=== PATIENT | female | born 1970 | race African-American/Black ===

== ENCOUNTER 2016-12-12 20:32 | Emergency (ER) | payer BC, OTHER ==
[2016-12-12 20:46] VITALS: BP 115/74; PULSE 85; TEMP 98.5; BMI 37.3
[2016-12-12] MEDS ORDERED: ALBUTEROL SO4 2.5/IPRATROPIUM 0.5 INH SOL 3 ML VIAL.NEB. NEB ONE ×2 (20:46→23:58)
--- NOTE | 2016-12-13 01:14 | PDOC ---
History of Present Illness - General History Source: Patient Exam Limitations: No Limitations - History of Present Illness Initial Comments: 12/13/16 01:30 Patient is a 46 year old female with a significant past medical history of asthma and hypertension who presents to the ED s/p asthma attack. Patient states that her chest feels tight and she has difficulty breathing. She notes that she has been using her rescue inhaler for several weeks. She reports 3 weeks of persistent cough. PSH - partial hysterectomy, meniscus repair. <Lillian Hale - Last Filed: 12/13/16 01:38> <Karma Dos Santos - Last Filed: 12/13/16 02:32> - General Chief Complaint: Asthma Stated Complaint: ASTHMA ATTACK Time Seen by Provider: 12/12/16 21:46 Past History <Lillian Hale - Last Filed: 12/13/16 01:38> - Past Medical History Asthma: Yes HTN: Yes - Surgical History Orthopedic Surgery: Yes (r knee arthroscopt 2011) - Immunization History Immunization Up to Date: No - Psycho/Social/Smoking Cessation Hx Anxiety: No Suicidal Ideation: No Smoking History: Never smoked Have you smoked in the past 12 months: No Hx Alcohol Use: Yes (occassional) Drug/Substance Use Hx: No Substance Use Type: None Hx Substance Use Treatment: No <Karma Dos Santos - Last Filed: 12/13/16 02:32> - Past Medical History Allergies/Adverse Reactions: Allergies Allergy/AdvReac Type Severity Reaction Status Date / Time No Known Drug Allergies Allergy Verified 12/12/16 20:40 shellfish derived Allergy Verified 12/12/16 20:40 Home Medications: Ambulatory Orders Budesonide/Formeterol Fumarate [SYMBICORT 160/4.5mcg -] 1 inh IH PRN PRN Lisinopril/Hydrochlorothiazide [Lisinopril-Hctz 10-12.5 mg Tab] 1 each PO DAILY 12/12/16 Review of Systems - Review of Systems Able to Perform ROS?: Yes Comments:: 12/13/16 01:30 CONSTITUTIONAL: Absent: fever, chills, diaphoresis, generalized weakness, malaise, loss of appetite HEENT: Absent: rhinorrhea, nasal congestion, throat pain, throat swelling, difficulty swallowing, mouth swelling, ear pain, eye pain, visual Changes CARDIOVASCULAR: Absent: chest pain, syncope, palpitations, irregular heart rate, lightheadedness , peripheral edema RESPIRATORY: Present: SOB, chest tightness, cough Absent: dyspnea with exertion, orthopnea, wheezing, stridor, hemoptysis GASTROINTESTINAL: Absent: abdominal pain, abdominal distension, nausea, vomiting, diarrhea, constipation, melena, hematochezia GENITOURINARY: Absent: dysuria, frequency, urgency, hesitancy, hematuria, flank pain, genital pain MUSCULOSKELETAL: Absent: myalgia, arthralgia, joint swelling SKIN: Absent: rash, itching, pallor HEMATOLOGIC/IMMUNOLOGIC: Absent: easy bleeding, easy bruising, lymphadenopathy, frequent infections ENDOCRINE: Absent: unexplained weight gain, unexplained weight loss, heat intolerance, cold intolerance NEUROLOGIC: Absent: headache, focal weakness or paresthesias, dizziness, unsteady gait, seizure, mental status changes, bladder or bowel incontinence PSYCHIATRIC: Absent: anxiety, depression, suicidal or homicidal ideation, hallucinations. <Lillian Hale - Last Filed: 12/13/16 01:38> *Physical Exam - Vital Signs Last Vital Signs Temp Pulse Resp BP Pulse Ox 98.5 F 85 22 115/74 97 12/12/16 20:45 12/12/16 20:45 12/12/16 20:45 12/12/16 20:45 12/13/16 00:03 - Physical Exam Comments: 12/13/16 01:32 GENERAL: Well developed, well nourished. Awake and alert. No acute distress. HEENT: Normocephalic, atraumatic. PERRLA, EOMI. No conjunctival pallor. Sclera are non- icteric. Moist mucous membranes. Oropharynx is clear. NECK: Supple. Full ROM. No JVD. Carotid pulses 2+ and symmetric, without bruits. No thyromegaly. No lymphadenopathy. CARDIOVASCULAR: Regular rate and rhythm. No murmurs, rubs, or gallops. Distal pulses are 2+ and symmetric. PULMONARY: No evidence of respiratory distress. Lungs clear to auscultation bilaterally. No wheezing, rales or rhonchi. ABDOMINAL: Soft. Non-tender. Non-distended. No rebound or guarding. No organomegaly. Normoactive bowel sounds. MUSCULOSKELETAL Normal range of motion at all joints. No bony deformities or tenderness. No CVA tenderness. EXTREMITIES: No cyanosis. No clubbing. No edema. No calf tenderness. SKIN: Warm and dry. Normal capillary refill. No rashes. No jaundice. NEUROLOGICAL: Alert, awake, appropriate. Cranial nerves 2-12 intact. No deficits to light touch and temperature in face, upper extremities and lower extremities. No motor deficits in the in face, upper extremities and lower extremities. Normoreflexic in the upper and lower extremities. Normal speech. PSYCHIATRIC: Cooperative. Good eye contact. Appropriate mood and affect. <Lillian Hale - Last Filed: 12/13/16 01:38> - Vital Signs Last Vital Signs Temp Pulse Resp BP Pulse Ox 98.5 F 85 22 115/74 97 12/12/16 20:45 12/12/16 20:45 12/12/16 20:45 12/12/16 20:45 12/13/16 00:03 <Karma Dos Santos - Last Filed: 12/13/16 02:32> ED Treatment Course - Medications Given in the ED: ED Medications Discontinued Medications Generic Name Dose Route Start Last Admin Trade Name Freq PRN Reason Stop Dose Admin Albuterol/Ipratropium 1 amp 12/12/16 20:46 12/12/16 20:47 Duoneb - NEB 12/12/16 20:47 2 amp NOW ONE Administration <Lillian Hale - Last Filed: 12/13/16 01:38> - Medications Given in the ED: ED Medications Discontinued Medications Generic Name Dose Route Start Last Admin Trade Name Freq PRN Reason Stop Dose Admin Albuterol/Ipratropium 1 amp 12/12/16 20:46 12/12/16 20:47 Duoneb - NEB 12/12/16 20:47 2 amp NOW ONE Administration <Karma Dos Santos - Last Filed: 12/13/16 02:32> *DC/Admit/Observation/Transfer - Attestations Scribe Attestion: 12/13/16 01:32 Documentation prepared by RICHELLE Hill, acting as medical assistant cardiology for Karma Dos Santos MD. <Lillian Hale - Last Filed: 12/13/16 01:38> <Karma Dos Santos - Last Filed: 12/13/16 02:32> Diagnosis at time of Disposition: Asthma attack - Discharge Dispostion Disposition: HOME Condition at time of disposition: Stable - Referrals Referrals: Eloisa Wu MD [Staff Physician] - - Patient Instructions Printed Discharge Instructions: DI for Asthma -- Adult Additional Instructions: please bulk picker your prescription at your pharmacy return to the emergency department for any worsening symptoms
[2016-12-13] MEDS ORDERED: predniSONE 20 MG TABLET (UD) PO ONE (01:38)
[2016-12-13] MEDS ORDERED: predniSONE 20 MG TABLET (UD) ONE (02:07)
--- NOTE | 2016-12-14 08:18 | EKG ---
Test Reason : Blood Pressure : / mmHG Vent. Rate : 058 BPM Atrial Rate : 058 BPM P-R Int : 210 ms QRS Dur : 088 ms QT Int : 416 ms P-R-T Axes : 047 041 014 degrees QTc Int : 408 ms SINUS BRADYCARDIA WITH 1ST DEGREE A-V BLOCK CANNOT RULE OUT ANTERIOR INFARCT , AGE UNDETERMINED ABNORMAL ECG NO PREVIOUS ECGS AVAILABLE Confirmed by ANJU YANCEY MD ([id number]) on 12/14/2016 8:18:21 AM Referred By: Confirmed By:ANJU YANCEY MD
== END 2016-12-13 03:27 | disposition home or self-care (01) ==
LOC: JER 20:32
PROC: 3E0F7GC Introduction of Other Therapeutic Substance into Respiratory Tract, Via Natural or Artificial Opening (ICD-10-PCS; principal; 2016-12-12)
DX: J45.901 Unspecified asthma with (acute) exacerbation (principal); I10 Essential (primary) hypertension
CPT/HCPCS: 71020-TC; 93005; 93010; 99282-25

== ENCOUNTER 2019-07-03 21:28 | Observation (INO) | payer OTHER ==
[2019-07-03] MEDS ORDERED: NITROGLYCERIN SUBLINGUAL 1/150 0.4 MG TAB SL ONE (22:25)
[2019-07-03] MEDS ORDERED: NITROGLYCERIN SUBLINGUAL 1/150 0.4 MG TAB ONE (22:49)
[2019-07-03 22:52] LABS: BASO % 1.1 % (0-2.0); HEMATOCRIT 33.5 % (32.4-45.2); HEMOGLOBIN 10.9 GM/dL (10.7-15.3); MCH 26.8 pg (25.7-33.7); MCHC 32.6 g/dl (32.0-36.0); MEAN CELL VOLUME 82.4 fl (80-96); MEAN PLT VOLUME 8.9 fl (7.5-11.1); MONO % 8.4 % (3.8-10.2); NEUT % 56.5 % (42.8-82.8); PLATELET COUNT 242 K/MM3 (134-434); RBC 4.07 M/mm3 (3.60-5.2); RDW 14.3 % (11.6-15.6); WHITE BLOOD COUNT 6.8 K/mm3 (4.0-10.0)
[2019-07-04 01:01] LABS: ALBUMIN 3.3 g/dl (3.4-5.0); ALK PHOS 60 U/L (45-117); ANION GAP 6 MMOL/L (8-16); BILIRUBIN,TOTAL 0.6 mg/dL (0.2-1); BLOOD UREA NITROGEN 10.9 mg/dL (7-18); CALCIUM 8.7 mg/dL (8.5-10.1); CHLORIDE 100 mmol/L (98-107); CO2 30 mmol/L (21-32); CREATININE 0.8 mg/dL (0.55-1.3); GLUCOSE,RANDOM 90 mg/dL (74-106); POTASSIUM 3.9 mmol/L (3.5-5.1); SGOT/AST 23 U/L (15-37); SGPT/ALT 22 U/L (13-61); SODIUM 136 mmol/L (136-145); TOT PROT 6.5 g/dl (6.4-8.2)
[2019-07-04] MEDS ORDERED: ENOXAPARIN NA (PORCINE) 100 MG/1 ML DISP.SYRIN SQ ONE ×2 (01:09→01:40)
[2019-07-04] MEDS ORDERED: SODIUM CHLORIDE 1,000 ML IV STA (01:13)
[2019-07-04] MEDS ORDERED: NITROGLYCERIN 2% OINTMENT - 1GM PACKET TD ONE ×3 (01:14→01:45)
--- NOTE | 2019-07-04 01:15 | PDOC ---
Documentation entered by Livia Gaona SCRIBE, acting as scribe for Marcio Guerrero MD. Marcio Guerrero MD: This documentation has been prepared by the [employer] Sammi, SCRIBE, under my direction and personally reviewed by me in its entirety. I confirm that the documentation accurately reflects all work, treatment, procedures, and medical decision making performed by me. History of Present Illness - General Chief Complaint: Chest Pain Stated Complaint: CHEST PAIN Time Seen by Provider: 07/03/19 22:13 - History of Present Illness Initial Comments: 07/03/19 22:32 The patient is a 49 year old female with a PMH of HTN and asthma who presents with about 45 min of constant, pleuritic chest pain with radiation to the back, pressure like in character with an occasional sharp feeling, 7/10, slightly alleviated with sitting opposed to lying down, with associated left lower extremity pain. Denies cough, fever or chills. She notes similar episode about 2 months ago which was not as severe and did not last as long. The patient has taken 162mg of aspirin prior to arrival to ED with no relief. Of note, the patient received an abdominal CT today for recent abdominal symptoms. PCP: Kirk Allergies: shellfish Social history: denies smoking or alcohol use. Surgical history: hysterectomy Family history: mom-CHF Past History - Past Medical History Allergies/Adverse Reactions: Allergies Allergy/AdvReac Type Severity Reaction Status Date / Time No Known Drug Allergies Allergy Verified 12/12/16 20:40 shellfish derived Allergy Verified 12/12/16 20:40 Home Medications: Ambulatory Orders Budesonide/Formeterol Fumarate [SYMBICORT 160/4.5mcg -] 1 inh IH PRN PRN Lisinopril/Hydrochlorothiazide [Lisinopril-Hctz 10-12.5 mg Tab] 1 each PO DAILY 12/12/16 Albuterol Sulfate Inhaler - [Ventolin Hfa Inhaler -] 1 - 2 inh PO Q4H PRN #1 inhaler 12/13/16 Prednisone [Deltasone] 40 mg PO DAILY #8 tablet 12/13/16 Asthma: Yes COPD: No HTN: Yes - Surgical History GI Surgery: Yes (Gastric sleeve) Orthopedic Surgery: Yes (r knee arthroscopt 2011) - Immunization History Immunization Up to Date: No - Psycho Social/Smoking Cessation Hx Smoking History: Never smoked Have you smoked in the past 12 months: No Hx Alcohol Use: No Drug/Substance Use Hx: No Substance Use Type: None Hx Substance Use Treatment: No Review of Systems - Review of Systems Comments:: 07/03/19 22:37 CONSTITUTIONAL: No fever, no chills, no fatigue EYES: No visual changes ENT: No ear pain, no sore throat CARDIOVASCULAR: +chest pain. no palpitations RESPIRATORY: No cough, no SOB GI: No abdominal pain, no nausea, no vomiting, no constipation, no diarrhea GENITOURINARY: No dysuria, no frequency, no hematuria MUSKULOSKELETAL: +LLE pain SKIN: No rash NEURO: No headache *Physical Exam - Vital Signs Last Vital Signs Temp Pulse Resp BP Pulse Ox 98.1 F 78 20 121/78 100 07/03/19 21:45 07/03/19 21:45 07/03/19 21:45 07/03/19 21:45 07/03/19 21:45 - Physical Exam Comments: 07/03/19 22:52 CONSTITUTIONAL: Well-appearing; well-nourished; in no apparent distress NECK: Supple; non-tender; no cervical lymphadenopathy CARD: Normal S1, S2; no murmurs, rubs, or gallops CHEST: +Reproducible right sternal tenderness to palpation RESP: Normal chest excursion with respiration; breath sounds clear and equal bilaterally; no wheezes, rhonchi, or rales ABD: Soft, non-distended; non-tender; no palpable organomegaly, no palpable hernias EXT: Normal ROM in all four extremities; non-tender to palpation; distal pulses intact SKIN: Warm, dry, no rash NEURO: No focal neurological deficiencies. Heart Score/ECG Review - ECG Impressions Comment:: 07/03/19 22:31 normal sinus rhythm normal ECG ED Treatment Course - LABORATORY CBC & Chemistry Diagram: 07/03/19 22:43 07/04/19 00:00 - ADDITIONAL ORDERS Additional order review: Laboratory Results 07/04/19 07/03/19 07/03/19 00:00 22:43 22:43 D-Dimer 758 H Sodium 136 Cancelled Potassium 3.9 Cancelled Chloride 100 Cancelled Carbon Dioxide 30 Cancelled Anion Gap 6 L Cancelled BUN 10.9 Cancelled Creatinine 0.8 Cancelled Est GFR (CKD-EPI)AfAm 100.33 Cancelled Est GFR (CKD-EPI)NonAf 86.57 Cancelled Random Glucose 90 Cancelled Calcium 8.7 Cancelled Total Bilirubin 0.6 Cancelled AST 23 Cancelled ALT 22 Cancelled Alkaline Phosphatase 60 Cancelled Creatine Kinase 239 H Troponin I < 0.02 Total Protein 6.5 Cancelled Albumin 3.3 L Cancelled 07/03/19 22:43 D-Dimer Sodium Potassium Chloride Carbon Dioxide Anion Gap BUN Creatinine Est GFR (CKD-EPI)AfAm Est GFR (CKD-EPI)NonAf Random Glucose Calcium Total Bilirubin AST ALT Alkaline Phosphatase Creatine Kinase Cancelled Troponin I Cancelled Total Protein Albumin 07/03/19 22:43 RBC 4.07 MCV 82.4 MCHC 32.6 RDW 14.3 MPV 8.9 Neutrophils % 56.5 Lymphocytes % 33.0 Monocytes % 8.4 Eosinophils % 1.0 Basophils % 1.1 - RADIOLOGY Radiology Studies Ordered: Category Date Time Status CHEST PA & LAT [RAD] Stat Radiology 07/03/19 22:25 Taken - Medications Given in the ED: ED Medications Discontinued Medications Generic Name Dose Route Start Last Admin Trade Name Freq PRN Reason Stop Dose Admin Nitroglycerin 0.4 mg 07/03/19 22:25 07/03/19 22:54 Nitrostat - SL 07/03/19 22:26 0.4 mg ONCE ONE Administration Medical Decision Making - Medical Decision Making 07/04/19 01:14 Patient is a 49-year-old female with history of asthma and hypertension who presents with pleuritic right-sided chest pain radiating to the back. EKG shows no evidence of acute ischemia or acute dysrhythmia. First set of cardiac enzymes within normal limits. Patient's heart score is noted to be 3. D-dimer is elevated. However, I am unable to obtain a CTA of chest at this time given the patient received IV contrast earlier in the day. Will administer subcu Lovenox at 1 mg/kg. Will admit to telemetry. Will hydrate. Will obtain CTA in 24 hours. Discharge - Discharge Information Problems reviewed: Yes Clinical Impression/Diagnosis: Chest pain Qualifiers: Chest pain type: unspecified Qualified Code(s): R07.9 - Chest pain, unspecified Condition: Fair - Admission Yes - Follow up/Referral Referrals: Eloisa Wu MD [Primary Care Provider] - - Patient Discharge Instructions - Post Discharge Activity
[2019-07-04 04:36] VITALS: BMI 41.1
[2019-07-04] MEDS ORDERED: LISINOPRIL 10 MG TABLET (FP) PO SCH (10:00)
[2019-07-04] MEDS ORDERED: HYDROCHLOROTHIAZIDE 12.5 MG CAPSULE (FP) PO SCH (10:00)
--- NOTE | 2019-07-04 10:00 | CON.CARD ---
Consult Consult Specialty:: Cardiology Referred by:: Eloisa Wu Reason for Consultation:: Pleuritic chest pain - History of Present Illness Chief Complaint: Pleurisy since resolved History of Present Illness: The patient is a 49 year old female with a PMH of HTN and asthma who presented with about 45 min of constant, pleuritic chest pain with radiation to the back, pressure like in character with an occasional sharp feeling, without associated symptoms of dyspnea, near or true syncope, palpitations, orthopnea, PND or LE edema. Chest pain has since resolved and LLE discomfort improved, denies prolonged immobility or family/personal h/o thrombophilia, received Lovenox and SL NTG in ED. PCP: Dima Allergies: shellfish Social history: denies smoking or alcohol use. Surgical history: hysterectomy Family history: mom-CHF - History Source History Provided By: Patient Limitations to Obtaining History: No Limitations - Past Medical History ...LMP: 06/20/16 ...: No - Past Surgical History Past Surgical History: Yes: None - Alcohol/Substance Use Hx Alcohol Use: No History of Substance Use: reports: None - Smoking History Smoking history: Never smoked Have you smoked in the past 12 months: No Home Medications - Allergies Allergies/Adverse Reactions: Allergies Allergy/AdvReac Type Severity Reaction Status Date / Time No Known Drug Allergies Allergy Verified 12/12/16 20:40 shellfish derived Allergy Verified 12/12/16 20:40 - Home Medications Home Medications: Ambulatory Orders Budesonide/Formeterol Fumarate [SYMBICORT 160/4.5mcg -] 1 inh IH PRN PRN Lisinopril/Hydrochlorothiazide [Lisinopril-Hctz 10-12.5 mg Tab] 1 each PO DAILY 12/12/16 Albuterol Sulfate Inhaler - [Ventolin Hfa Inhaler -] 1 - 2 inh PO Q4H PRN #1 inhaler 12/13/16 Review of Systems - Review of Systems Cardiovascular: reports: Chest Pain Vital Signs: Vital Signs Temperature 98.5 F 07/04/19 04:22 Pulse Rate 65 07/04/19 04:22 Respiratory Rate 18 07/04/19 04:22 Blood Pressure 110/61 07/04/19 04:22 O2 Sat by Pulse Oximetry (%) 98 07/04/19 04:22 Constitutional: Yes: No Distress, Calm Neck: Yes: Supple Respiratory: Yes: Regular, CTA Bilaterally Gastrointestinal: Yes: Normal Bowel Sounds, Soft, Abdomen, Obese Cardiovascular: Yes: Regular Rate and Rhythm JVD: No Carotid Bruit: No Heart Sounds: Yes: S1, S2 Edema: No - Other Data Labs, Other Data: CBC, BMP 07/03/19 22:43 07/04/19 00:00 Troponin, BNP 07/03/19 07/04/19 22:43 00:00 Troponin I Cancelled < 0.02 Troponin, BNP 07/03/19 07/04/19 22:43 00:00 Troponin I Cancelled < 0.02 NSR @ [address]-T changes Ejection Fraction %: LVEF > or = 40 % Imaging - Results Chest X-ray: Report Reviewed (NAD) Problem List - Problems (1) Hypertension Code(s): I10 - ESSENTIAL (PRIMARY) HYPERTENSION Qualifiers: Hypertension type: essential hypertension Qualified Code(s): I10 - Essential (primary) hypertension (2) Asthma Code(s): J45.909 - UNSPECIFIED ASTHMA, UNCOMPLICATED Qualifiers: Asthma severity: moderate (3) Chest pain Code(s): R07.9 - CHEST PAIN, UNSPECIFIED Qualifiers: Chest pain type: pleurodynia Qualified Code(s): R07.81 - Pleurodynia Assessment/Plan 1. Pleuritic chest pain since resolved, possible atelectasis 2. Asthma 3. Hypertension P:1. Symptoms suggest low clinical suspicion of pulmonary embolism, elevated D- dimer is nonspecific for DVT/PE, defer chest CTA, ruling out IA 2. Analgesia as needed 3. Continue BD as needed, zesteretic 06/01.5 qd 4. D/c planning with f/u in office , thank you for consultative opportunity
--- NOTE | 2019-07-04 10:14 | PN ---
Progress Note, Physician Chief Complaint: Pt lying in bed,no complaints today NO sob,satuaration 99% no chest pain As per cardiology low probability for embolism fas per the symptoms and nonspecefic value of D dimer Rpt d dimer value is lower - Current Medication List Current Medications: Active Medications Hydrochlorothiazide (Hctz -) 12.5 mg PO DAILY HERMAN Lisinopril (Prinivil) 10 mg PO DAILY HERMAN - Objective Vital Signs: Vital Signs Temperature 98.5 F 07/04/19 04:22 Pulse Rate 65 07/04/19 04:22 Respiratory Rate 18 07/04/19 04:22 Blood Pressure 110/61 07/04/19 04:22 O2 Sat by Pulse Oximetry (%) 98 07/04/19 04:22 Constitutional: Yes: No Distress Eyes: Yes: Conjunctiva Clear HENT: Yes: Atraumatic, Normocephalic Neck: Yes: Supple, Trachea Midline Cardiovascular: Yes: Regular Rate and Rhythm Respiratory: Yes: Regular, CTA Bilaterally Gastrointestinal: Yes: Normal Bowel Sounds, Soft Musculoskeletal: Yes: WNL Extremities: Yes: WNL Edema: No Peripheral Pulses WNL: Yes Neurological: Yes: WNL, Alert ...Motor Strength: WNL Psychiatric: Yes: WNL, Alert Labs: CBC, BMP 07/03/19 22:43 07/04/19 00:00 - ....Imaging Chest X-ray: Report Reviewed Assessment/Plan Pleuritic chest pain HTN asthma PLAN continue lisinopril cardiology f/u ASA 81mg po daily
[2019-07-04] MEDS ORDERED: ASPIRIN COATED 81 MG TABLET.EC PO SCH (10:15)
--- NOTE | 2019-07-04 10:39 | HP ---
DATE OF ADMISSION: 07/04/2019 HISTORY: Patient is a 49-year-old female with a history of hypertension and asthma who came to the emergency room some pleuritic chest pain with radiation to the back on the right side of the chest. It was sharp pain, 7/10. The pain is more while she sits down associated with left lower extremity pain. Patient denies cough, fever, or chills. No wheezing. Patient had similar episode 2 months ago. Resolved by itself. Today patient took an aspirin 162 mg prior to coming to the emergency room. Patient had an abdominal CAT scan with contrast done yesterday morning for abdominal pain ordered by the safety clothing and equipment developer. No headache, no palpitations, no sweating, no motor or sensory disturbance. PAST MEDICAL HISTORY: History of asthma and hypertension. SURGICAL HISTORY: History of hysterectomy. Patient denies smoking or alcohol. ALLERGIES: SHELLFISH. No known drug allergies. MEDICATIONS: Patient is on Symbicort, lisinopril, hydrochlorothiazide, Ventolin SFA, and prednisone p.r.n. REVIEW OF SYSTEMS: Constitutional: No fever, no shortness of breath, no chills, no fatigue. HEENT: Eyes, no visual changes. ENT, no ear pain or throat pain. Cardiovascular: Just pleuritic chest pain on the right side. No palpitation. Respiratory: No cough. No shortness of breath. No wheezing. Gastrointestinal: No abdominal pain, no nausea, no vomiting. Genitourinary: No urinary symptoms. Musculoskeletal: Left lower extremity pain. Skin: No skin rash. Neurologic: No headache. No apparent motor or sensory deficit. PHYSICAL EXAMINATION: General: Alert, oriented. No apparent distress. Vital Signs: Temperature 98.1, pulse 78 per minute, respirations 20, BP 121/78, saturation 100%. General: Patient well appearing, well nourished in no distress. No shortness of breath. Neck: Supple. No JVD. Cardiovascular: First and 2nd sound normal. Chest Wall: Reproducible tenderness in right costochondral junction at the 4th and 5th rib cage area. Respiratory: Normal. Respirations, breath sounds equal bilaterally. No wheezing. Abdomen: Soft, nontender. No distention. Bowel sounds present. Extremities: No edema. No calf tenderness. Skin: Warm. Neurologic: Cranial nerves 2-12 normal. No apparent motor or sensory deficits. ECG as per the ER, normal sinus rhythm. LABORATORIES: CBC normal. D-dimer 758. Chemistry shows sodium 136, potassium 3.9, chloride 100, bicarbonate 30, BUN 10.9, creatinine 0.8, calcium 8.7. AST, ALT normal. Troponin less than 0.2. CK 239. Chest x-ray, no acute pathology, no infiltrate. Patient was given nitroglycerin and Lovenox in the ER. Vitals were stable in the ER. Patient admitted on telemetry for observation. Cardiology consult called. Patient was started on home medications. Patient's vitals were stable. Patient is asymptomatic on the floor. No shortness of breath. Saturation was normal. ADMITTING DIAGNOSIS: Chest pain. PLAN: Continue home medications. We will follow the cardiology recommendation and monitor the troponin and D-dimer. ZABRINA MERCER M.D. [id number]
[2019-07-04] MEDS ORDERED: ACETAMINOPHEN 325 MG TABLET (FP) PO PRN (10:43)
--- NOTE | 2019-07-04 12:38 | EKG ---
Test Reason : Blood Pressure : / mmHG Vent. Rate : 064 BPM Atrial Rate : 064 BPM P-R Int : 188 ms QRS Dur : 088 ms QT Int : 412 ms P-R-T Axes : 057 048 022 degrees QTc Int : 425 ms NORMAL SINUS RHYTHM NORMAL ECG WHEN COMPARED WITH ECG OF 13-DEC-2016 01:58, NO SIGNIFICANT CHANGE WAS FOUND Confirmed by ENRIQUE NESBITT MD ([id number]) on 07/04/2019 12:37:50 PM Referred By: Confirmed By:ENRIQUE NESBITT MD
--- NOTE | 2019-07-04 14:24 | DS ---
DATE OF ADMISSION: 07/04/2019 DATE OF DISCHARGE: 07/04/2019 Patient is a 49-year-old female with history of hypertension, asthma, admitted to telemetry with complaints of pleuritic chest pain since 1 day. Patient took aspirin, and it was relieved. Patient has no shortness of breath. No orthopnea. No palpitations. No dyspnea. PAST MEDICAL HISTORY: Significant for hypertension, asthma. ALLERGIES: SHELLFISH. Patient's labs were normal except for the D-dimer. D-dimer was slightly elevated, 758, at the time of admission. CBC and CMP normal. normal. EKG was normal. On physical examination, the patient's vitals stable, temperature 98.1, blood pressure 121/78, saturation 100% at the time of admission, and after hospitalization, it was 98%. Rest within normal. EKG was normal. Since the D-dimer was high, patient was given Lovenox in the emergency room empirically. Patient had CAT scan of the abdomen and pelvis done today morning as an outpatient with IV contrast. So, CTA chest was not done. After admission, patient was by Cardiology. As per Cardiology, there was a low probability for an embolism, and the patient has no symptoms. No shortness of breath, no tachycardia, no dyspnea. Patient no near-syncope symptoms. The pain was pleuritic chest pain on the right side, and the impression was low probability of pulmonary embolism. Elevated D-dimer was nonspecific for DVT or PE. So, deferred chest CTA. Patient was asymptomatic since admission; so, patient discharged home on home medication and and recommended to follow up with Cardiology as an outpatient and with primary in 1 week. During hospitalization, patient was stable and discharged home in a stable condition. ZABRINA MERCER M.D. [id number]
[2019-07-04 15:59] VITALS: BP 118/67; PULSE 68; TEMP 98.7
== END 2019-07-04 16:37 | disposition home or self-care (01) ==
LOC: JER 21:28 → UNDOADMOB 07-04 01:20 → INTOOBSV 07-04 01:20 → JERBED 07-04 01:20 → J4W 07-04 04:21 → JERBED 07-04 04:21 → J4W 07-04 10:05 → JERBED 07-04 10:05
PROVIDERS: ADMIT Family Medicine; ATTEND Family Medicine
PROC: 3E0337Z Introduction of Electrolytic and Water Balance Substance into Peripheral Vein, Percutaneous Approach (ICD-10-PCS; principal; 2019-07-04)
PROC: 3E013GC Introduction of Other Therapeutic Substance into Subcutaneous Tissue, Percutaneous Approach (ICD-10-PCS; 2019-07-04)
DX: R07.89 Other chest pain (principal); I10 Essential (primary) hypertension; J45.909 Unspecified asthma, uncomplicated; R79.1 Abnormal coagulation profile; Z98.84 Bariatric surgery status; Z91.013 Allergy to seafood; Z90.710 Acquired absence of both cervix and uterus
CPT/HCPCS: 36415; 71046-TC-FY; 80053; 82550; 82553; 84484; 85025; 85379; 93005; 93010; 99284-25; G0378; J7030

== ENCOUNTER 2021-04-18 06:50 | Emergency (ER) | payer OTHER ==
[2021-04-18 07:26] VITALS: BP 127/74; PULSE 77; TEMP 98; BMI 39.0
[2021-04-18] MEDS ORDERED: IBUPROFEN 600 MG TABLET (FP) PO ONE ×2 (08:44→09:09)
== END 2021-04-18 11:00 | disposition home or self-care (01) ==
LOC: JER 06:50
DX: M79.605 Pain in left leg (principal)
CPT/HCPCS: 93970-TC; 99283-25

== ENCOUNTER 2023-03-13 12:08 | Emergency (ER) | payer OTHER ==
[2023-03-13 12:13] VITALS: BP 135/85; PULSE 82; RESP 16; TEMP 98.1; BMI 35.3
[2023-03-13] MEDS ORDERED: ACETAMINOPHEN 500 MG TABLET (FP) PO ONE (12:51)
[2023-03-13] MEDS ORDERED: ONDANSETRON *ODT* 4 MG TABLET SL ONE (12:51)
[2023-03-13] MEDS ORDERED: ONDANSETRON *ODT* 4 MG TABLET ONE (12:58)
[2023-03-13] MEDS ORDERED: ACETAMINOPHEN 500 MG TABLET (FP) ONE (12:58)
== END 2023-03-13 14:07 | disposition home or self-care (01) ==
LOC: JER 12:08 → JERFT 12:08
DX: S06.0X0A Concussion without loss of consciousness, initial encounter (principal); S13.4XXA Sprain of ligaments of cervical spine, initial encounter; M54.2 Cervicalgia; R51.9 Headache, unspecified; W18.2XXD Fall in (into) shower or empty bathtub, subsequent encounter; Y93.9 Activity, unspecified; Y92.002 Bathroom of unspecified non-institutional (private) residence as the place of occurrence of the external cause
CPT/HCPCS: 70450-TC; 72125-TC; 99284-25; Q0162

== ENCOUNTER 2023-10-14 05:53 | Emergency (ER) | payer OTHER ==
[2023-10-14 06:02] VITALS: BP 137/90; PULSE 73; RESP 18; BMI 35.2
[2023-10-14 06:21] VITALS: TEMP 97.6
[2023-10-14] MEDS: ACETAMINOPHEN 325 MG TABLET (FP) PO ONE (07:35)
[2023-10-14] MEDS ORDERED: ACETAMINOPHEN 325 MG TABLET (FP) ONE (07:47)
[2023-10-14 08:17] LABS: EOS % 0.7 % (0-4.5); HEMATOCRIT 38.9 % (32.4-45.2); HEMOGLOBIN 12.7 GM/dL (10.7-15.3); MCH 27.1 pg (25.7-33.7); MCHC 32.6 g/dl (32.0-36.0); MEAN PLT VOLUME 8.9 fl (7.5-11.1); NEUT % 52.3 % (42.8-82.8); PLATELET COUNT 249 10^3/uL (134-434); RBC 4.69 M/mm3 (3.60-5.2); WHITE BLOOD COUNT 3.8 K/mm3 (4.0-10.0)
[2023-10-14 08:18] LABS: URINE APPEARANCE CLEAR; URINE BILIRUBIN NEGATIVE (NEGATIVE); URINE COLOR YELLOW; URINE GLUCOSE (UA) NEGATIVE (NEGATIVE); URINE KETONE NEGATIVE (NEGATIVE); URINE LEUK ESTERASE NEGATIVE (NEGATIVE); URINE NITRITE NEGATIVE (NEGATIVE); URINE PROTEIN NEGATIVE (NEGATIVE)
[2023-10-14 08:37] LABS: BLOOD UREA NITROGEN 13.1 mg/dL (7-18); CALCIUM 9.2 mg/dL (8.5-10.1); MAGNESIUM 2.2 mg/dL (1.8-2.4)
[2023-10-14 08:40] LABS: CREATININE 0.8 mg/dL (0.55-1.3); PHOSPHOROUS 3.8 mg/dL (2.5-4.9)
[2023-10-14 08:41] LABS: BILIRUBIN,TOTAL 0.9 mg/dL (0.2-1); TOT PROT 7.7 g/dl (6.4-8.2)
[2023-10-14] MEDS: FLUCONAZOLE 150 MG TABLET PO ONE (09:00)
[2023-10-14] MEDS ORDERED: FLUCONAZOLE 150 MG TABLET PO ONE (09:01)
== END 2023-10-14 09:21 | disposition home or self-care (01) ==
LOC: JER 05:53
DX: R10.32 Left lower quadrant pain (principal); R30.0 Dysuria; R33.9 Retention of urine, unspecified; B37.31 Acute candidiasis of vulva and vagina
CPT/HCPCS: 36415; 80053; 81003; 83690; 83735; 84100; 85025; 87086; 99283-25

== ENCOUNTER 2024-06-25 17:26 | Emergency (ER) | payer OTHER ==
[2024-06-25 17:38] VITALS: BP 135/72; PULSE 72; RESP 18; TEMP 98; BMI 37.0
[2024-06-25] MEDS ORDERED: KETOROLAC TROMETHAMINE 30 MG/1 ML VIAL ONE (18:13)
[2024-06-25] MEDS: KETOROLAC TROMETHAMINE 30 MG/1 ML VIAL IM ONE (18:17)
== END 2024-06-25 19:12 | disposition home or self-care (01) ==
LOC: JERFT 17:26
PROC: 3E0133Z Introduction of Anti-inflammatory into Subcutaneous Tissue, Percutaneous Approach (ICD-10-PCS; principal; 2024-06-25)
DX: M79.644 Pain in right finger(s) (principal); M25.562 Pain in left knee; W01.0XXA Fall on same level from slipping, tripping and stumbling without subsequent striking against object, initial encounter
CPT/HCPCS: 73140-TC-RT-FY; 73562-TC-LT-FY; 99284-25